=== PATIENT | female | born 1965 | race Caucasian/White ===

== ENCOUNTER 2020-06-10 13:27 | Outpatient (CLI) | payer BC ==
[2020-06-11 01:27] LABS: SARS-CoV-2 PCR by NAA Not Detected (NotDetected)
== END 2020-06-10 13:28 | disposition home or self-care (01) ==
LOC: CSHLAB 13:27
PROVIDERS: ATTEND Internal Medicine Gastroenterology
DX: Z20.822 Contact with and (suspected) exposure to COVID-19 (principal); Z12.11 Encounter for screening for malignant neoplasm of colon
CPT/HCPCS: 87635; U0003; U0005

== ENCOUNTER 2020-06-15 08:22 | Day surgery (SDC) | payer BC ==
[2020-06-14 14:49] VITALS: BMI 46.5
[2020-06-15] MEDS ORDERED: Lidocaine 1% MPF 2 ML VIAL ONE (09:19)
[2020-06-15] MEDS ORDERED: PROPOFOL 20 ML ONE ×2 (09:47→10:39)
[2020-06-15] MEDS ORDERED: Lidocaine 1% PF 5 ML VIAL ONE (09:48)
== END 2020-06-15 12:00 | disposition home or self-care (01) ==
LOC: CSHSDC 08:22
PROVIDERS: ATTEND Internal Medicine Gastroenterology
DX: Z12.11 Encounter for screening for malignant neoplasm of colon (principal); D12.4 Benign neoplasm of descending colon; K57.30 Diverticulosis of large intestine without perforation or abscess without bleeding; K64.9 Unspecified hemorrhoids
CPT/HCPCS: 88305; J2704

== ENCOUNTER 2021-11-14 15:24 | Outpatient (CLI) | payer BC | END 2021-11-14 15:25 | disposition home or self-care (01) | LOC: CSHMAMMO 15:24 | PROVIDERS: ATTEND Family Medicine Sports Medicine | DX: Z12.31 Encounter for screening mammogram for malignant neoplasm of breast (principal) | CPT/HCPCS: 77063; 77067 ==

== ENCOUNTER 2022-05-03 10:11 | Outpatient (CLI) | payer BC | END 2022-05-03 10:12 | disposition home or self-care (01) | LOC: CSHMAMMO 10:11 | PROVIDERS: ATTEND Obstetrics & Gynecology | DX: Z13.820 Encounter for screening for osteoporosis (principal) | CPT/HCPCS: 77080 ==

== ENCOUNTER 2022-11-24 12:30 | Outpatient (CLI) | payer BC | END 2022-11-24 12:31 | disposition home or self-care (01) | LOC: CSHMAMMO 12:30 | PROVIDERS: ATTEND Family Medicine Sports Medicine | DX: Z12.31 Encounter for screening mammogram for malignant neoplasm of breast (principal) | CPT/HCPCS: 77063; 77067 ==

== ENCOUNTER 2024-12-05 08:49 | Outpatient (CLI) | payer BC | END 2024-12-05 08:50 | disposition home or self-care (01) | LOC: CSHMAMMO 08:49 | PROVIDERS: ATTEND Family Medicine Sports Medicine | DX: Z12.31 Encounter for screening mammogram for malignant neoplasm of breast (principal) | CPT/HCPCS: 77063; 77067 ==